=== PATIENT | female | born 1975 ===

== ENCOUNTER 2016-11-18 02:44 | Inpatient (IN) | payer MEDICAID ==
[~2016-11-18] VITALS: Ht 147.3 cm; Wt 79.4 kg
[2016-11-18] MEDS ORDERED: Lactated Ringer's 1,000 ML IV PRN (08:57)
[2016-11-18] MEDS ORDERED: Sodium Chloride LOK Flush 10 mL Syringe IVFLUSH PRN (09:00)
[2016-11-18] MEDS ORDERED: Oxytocin 10 Unit/mL Inj IM PRN (09:00)
[2016-11-18] MEDS ORDERED: Carboprost 250 mCg/mL Inj IM PRN (09:00)
[2016-11-18] MEDS ORDERED: Hemorrhage Kit, Post Partum XX ONE (09:00)
[2016-11-18] MEDS ORDERED: Methylergonovine 0.2 mg/mL Inj IM PRN (09:00)
[2016-11-18] MEDS ORDERED: Oxytocin 30 Units/500 mL LR 30 UNITS in IV Premix 1 EACH IV PRN (09:00)
[2016-11-18 09:04] LABS: Mean Corpuscular Volume 96.4 fL (81-100)
[2016-11-18] MEDS: Lactated Ringer's 1,000 ML IV SCH ×3 (09:32→20:33)
[2016-11-18] MEDS: Oxytocin 30 Units/500 mL LR 30 UNITS in IV Premix 1 EACH IV PRN (09:38)
[2016-11-18] MEDS ORDERED: PREN-148 PO (09:40)
[2016-11-18] MEDS ORDERED: FERR-83 PO (09:41)
--- NOTE | 2016-11-18 10:34 | HP ---
[address] [address] HISTORY AND PHYSICAL PATIENT: BEVERLY MCCALLUM : 1975 MR#: [id number] ADMIT: 11/18/2016 JOB ID: [id number] ADMISSION DIAGNOSIS: Elective induction at 39 weeks for history of prior intrauterine demise x2 at term. HISTORY OF PRESENT ILLNESS: The patient is a 41 years old, 8 para 7-0-0-4 at 39 weeks gestational age by LMP, confirmed by 14 week ultrasound who has her complicated with the followin. History of 2 stillborn in [place] at term in 1996 and 2004. 2. One child at the age of 20 years old of illness in [place] in 1994. 3. Advanced maternal age. 4. Abnormal quad screen with positive for Down syndrome and trisomy 18, negative cell-free DNA testing, but thick nuchal translucency on ultrasound. Amniocentesis done. Interface FISH test showed normal signal pattern for chromosomes 13, 18, 21, and Y chromosome. Abnormal microarray with increased risk for autosomal recessive disorders. 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 5. Echogenic bowel that resolved recently. 6. Enlarged cisterna magna. Last measurement 18 mm on November 05, 2016 with Maternal Medicine Department. 7. Grand multipara. 8. Anemia. 9. History of abnormal Pap smear with biopsy in [place], ASCUS Pap on June 11, 2016 with negative high-risk HPV. 10. speaking. 11. Declined tubal sterilization and opted for intrauterine device for control. 12. Baby had a macrosomia that resolved on the last ultrasound at [facility] on November 05, 2016 with estimated weight of 3236 g, 67th percentile, MARY JANE of 11.5 cm, average gestational age 37 weeks and 3 days. Normal growth. Enlarged cisterna magna 18 mm. The patient denied any leakage of fluid, vaginal bleeding, contractions. Reports movements who is admitted for planned elective induction of labor as recommended by Maternal Medicine consult. Consent signed. All questions answered. PAST OBSTETRICAL HISTORY: In 1990 spontaneous vaginal delivery at term in [place], no complications. In 1992 spontaneous vaginal delivery in [place], no complications. In 1994 spontaneous vaginal delivery at term in [place]. Baby at 1 years old of illness, unclear what time of illness. In 1996 patient delivered a stillborn at term in [place]. In 1997 spontaneous vaginal delivery of a term viable in [place]. In 2002 term delivery in [place] vaginal. In 2004 second intrauterine demise. Baby born a still born at term in [place]. And the current . 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 The history of abnormal Pap with biopsy in [place]. No records available. No STDs. PAST MEDICAL HISTORY: Anemia. PAST SURGICAL HISTORY: Insignificant. SOCIAL HISTORY: Denied any alcohol consumption. Denied any drugs of abuse. Denied any cigarette smoking. ALLERGIES: No known drug allergies. MEDICATIONS: 1. vitamins. 2. Promethazine for early nausea vomiting in , patient stopped it. 3. Iron. LABORATORIES: O-positive, antibody negative, rubella immune, serology nonreactive, hepatitis B surface antigen negative. HIV nonreactive. Gonorrhea and Chlamydia cultures negative. Quad screen positive for Down syndrome and trisomy 18. Cellfree DNA testing was negative. Amniocentesis showed abnormal microarray with increased risk of autosomal recessive disorders consistent with as well. Pap smear ASCUS Pap with negative high-risk HPV on June 11, 2016. Diabetes screen 91 at 25 weeks gestational age. GBS cultures negative on November 03, 2016. PHYSICAL EXAMINATION: Patient is alert, oriented x3. Vital signs are 119/75 for blood pressure. Respirations are 18, pulse is 62, temperature 36.8 degrees centigrade. Heart is regular rate and rhythm. Positive S1, S2. Lungs clear to auscultation bilaterally. Abdomen gravid uterus, nontender. Positive bowel sounds. Lower extremities: No calf tenderness appreciated bilaterally. Cervical exam 2 cm dilated, cervix 50% effaced, -4 station medium consistency, posterior position, Rojo score of 3. Bedside ultrasound confirmed vertex presentation on admission. Cervical ripening balloon was inserted. Normal saline 80 cc injected in the uterine balloon and 80 cc infused in the vaginal balloon. The patient tolerated the cervical ripening balloon insertion well. ASSESSMENT AND PLAN: Patient is a 41-year-old, 8 para 7-0-0-4 at 39 weeks gestational age by last menstrual period, confirmed by 14 week ultrasound. Admitted with complicated with the above thus admitted for an elective induction of labor at term for prior history of intrauterine demise x2 at term as recommended by Maternal Medicine consults. 1. Induction of labor started with cervical ripening balloon. Will consider adding low-dose Pitocin. 2. Reactive heart tracing baseline of 140 beats per minute, positive accelerations, no decelerations, moderate variability. Continue external monitoring and consider internal monitoring as needed. 3. GBS cultures negative. 4. Discussed intrapartum analgesia options with the patient. She is still undecided. 5. Discussed all findings with the Pediatric hospitalist on-call for today. All of the above was discussed in detail with the patient through a hospital provided site interpreter. All questions answered. The patient agreed to the above.
[2016-11-18] MEDS ORDERED: Methylergonovine 0.2 mg/mL Inj ONE (14:00)
[2016-11-18] MEDS ORDERED: fentaNYL-PF 50 mCg/mL 2 mL Inj IVPUSH PRN ×2 (15:30→16:00)
[2016-11-18] MEDS ORDERED: fentaNYL 2 mCg/mL-Bupiv 0.125% 100 ML EPIDURAL SCH (15:30)
[2016-11-18] MEDS ORDERED: Phenylephrine/NS-PF 100 mCg/mL 5 mL Syringe IVPUSH PRN (15:30)
[2016-11-18] MEDS ORDERED: Ondansetron 2 mg/mL 2 mL Inj IVPUSH PRN (15:30)
[2016-11-18] MEDS ORDERED: EPHEDrine Sulfate 50 mg/mL Inj IVPUSH PRN (15:30)
[2016-11-18] MEDS ORDERED: Lactated Ringer's 500 ML IV ONE (15:30)
[2016-11-18] MEDS ORDERED: Lactated Ringer's 1,000 ML IV SCH (15:30)
[2016-11-18] MEDS ORDERED: Atropine 1 mg/10 mL (Code) Syringe IVPUSH PRN (15:30)
[2016-11-18] MEDS ORDERED: fentaNYL-PF 50 mCg/mL 2 mL Inj IVPUSH ONE (15:55)
--- NOTE | 2016-11-18 16:25 | PROG NOTE ---
[address] [address] PROGRESS NOTE PATIENT: BEVERLY MCCALLUM : 1975 MR#: [id number] ADMIT: 11/18/2016 JOB ID: [id number] DATE: 11/18/2016 The patient had a cervical ripening balloon inserted this morning at 8:30 a.m. The balloon fell out. Cervix was 5 cm dilated, 60% effaced, -4, presenting vertex, mid position. Artificial rupture of membranes. Obtained clear fluid. Intrauterine pressure catheter inserted to monitor uterine contractions. The patient was at the 6 milliunits of Pitocin per minute. Vital signs are 131/63 for blood pressure. Respirations are 18, pulse is 71, temperature 36.8 degrees centigrade. heart tracing is showing a baseline of 130 beats per minute, positive accelerations, no decelerations, moderate variability, category 1 heart tracing. ASSESSMENT AND PLAN: 1. A 41-year-old 8, para 7-0-0-4 at 39 weeks gestational age by last menstrual period, confirmed by 18 week ultrasound admitted for elective induction of labor at term for a history of prior IUFD x2 and please see her problem list on admission. Induction of labor started with cervical ripening balloon and low-dose Pitocin with artificial rupture of membranes. Would continue with Pitocin. 2. Discussed intrapartum analgesia. The patient requested IV pain medications. Given one dose of fentanyl IV. 3. GBS cultures negative. 4. Category 1 heart tracing. Will continue external monitoring. Consider internal monitoring on a p.r.n. basis. All the above discussed in detail with the patient through a hospital provided packing and stamping machine operator. The patient agreed to the above.
[2016-11-18] MEDS: Sodium Chloride LOK Flush 10 mL Syringe IVFLUSH SCH (16:30)
[2016-11-18] MEDS: fentaNYL-PF 50 mCg/mL 2 mL Inj IVPUSH PRN (21:27)
[2016-11-19] MEDS: fentaNYL-PF 50 mCg/mL 2 mL Inj IVPUSH PRN (00:05)
[2016-11-19] MEDS ORDERED: Carboprost 250 mCg/mL Inj IM PRN (00:25)
[2016-11-19] MEDS ORDERED: Hemorrhage Kit, Post Partum XX ONE (00:25)
[2016-11-19] MEDS ORDERED: Benzocaine (Dermoplast) 20% 60 Gm Spray TOPICAL PRN (00:25)
[2016-11-19] MEDS ORDERED: Oxytocin 30 Units/500 mL LR 30 UNITS in IV Premix 1 EACH IV PRN (00:25)
[2016-11-19] MEDS ORDERED: Witch Hazel-Glycerin Pads TOPICAL PRN (00:25)
[2016-11-19] MEDS: Lactated Ringer's 1,000 ML IV SCH ×2 (00:25→08:56)
[2016-11-19] MEDS ORDERED: Oxytocin 10 Unit/mL Inj IM PRN (00:25)
[2016-11-19] MEDS ORDERED: LANOlin HPA 7 Gm Ointment TOPICAL PRN (00:25)
[2016-11-19] MEDS ORDERED: oxyCODONE-Acetamin 5-325 mg Tablet PO PRN (00:25)
[2016-11-19] MEDS ORDERED: Methylergonovine 0.2 mg/mL Inj IM PRN (00:25)
[2016-11-19] MEDS: Sodium Chloride LOK Flush 10 mL Syringe IVFLUSH SCH (00:30)
--- NOTE | 2016-11-19 01:24 | OP ---
[address] [address] OPERATIVE REPORT PATIENT: BEVERLY MCCALLUM : 1975 MR#: [id number] ADMIT: 11/18/2016 JOB ID: [id number] DATE OF SURGERY: 11/18/2016 PREOPERATIVE DIAGNOSIS(ES): 1. Intrauterine at 39 weeks gestation. 2. History of prior intrauterine at term x2. 3. Abnormal quad screen. 4. Negative cell free DNA. 5. Amniocentesis test normal for chromosomes 13, 18, 21 and Y chromosome, but with abnormal microarray with increased risk of autosomal recessive disorders. 6. Fetus with enlarged cisterna magna. 7. Grand multiparous. 8. Anemia. 9. Advanced maternal age. POSTOPERATIVE DIAGNOSIS(ES): 1. Intrauterine at 39 weeks gestation, status post normal vaginal delivery. 2. History of prior intrauterine at term x2. 3. Abnormal quad screen. 4. Negative cell free DNA. 5. Amniocentesis test normal for chromosomes 13, 18, 21 and Y chromosome, but with abnormal microarray with increased risk of autosomal recessive disorders. 6. Fetus with enlarged cisterna magna. 7. Grand multiparous. 8. Anemia. 9. Advanced maternal age. ESTIMATED BLOOD LOSS: 350 mL. ANESTHESIA: None. SURGEON: Iwona Nicolas MD SOFTWARE BUSINESS ANALYST: None. FINDINGS: Delivered a male in right occiput anterior position. Weight 3662 g, equivalent to 8 pounds 1 ounce. Apgars 8 at one minute and 9 at five minutes. Three-vessel cord placenta. COMPLICATIONS: None. PROCEDURE IN DETAIL: This is a 41-year-old 8, now para 8-0-0-5 who presented at 39 weeks gestation and zero days, dated by last menstrual period and confirmed by 14-week ultrasound, for induction of labor for history of previous two stillborn deliveries at term in [place] in 1996 and in 2004. This was complicated by advanced maternal age and abnormal quad screen and abnormal amniocentesis, as mentioned above. Induction of labor started at 8:29 a.m. on November 18, 2016. Cervix was 2 cm, 50% effaced, -4. Coles bulb balloon was inserted and low-dose Pitocin was started. The Coles bulb fell out at 1515 and artificial rupture of membrane was performed. Cervix was 5 cm, 60% effaced and -4. We continued to increase Pitocin as per protocol until the patient was found completely dilated at 2306. The patient pushed effectively without epidural to deliver at 2351. She delivered a male in the cephalic presentation in left occiput anterior position, with no nuchal cord. Shoulders delivered without difficulty. was placed on the maternal abdomen. Cord clamping was performed after 1 minute delay. Retail Account Representative was present in the room at the time of delivery. A cord segment was collected for gases. Cord blood was collected for typing. Then, placenta was delivered spontaneously intact with a three-vessel cord. Oxytocin was started and fundal massage was performed. Examination of the perineum revealed no lacerations. Uterine fundus was firm. Misoprostol 600 mcg was placed rectally prophylactically for hemorrhage. All instrument, needle and sponge counts were correct x2. The patient and infant were recovering in the delivery room and in stable condition at the end of the procedure. Iwona Reece MD, was present and performed the entire delivery. ANA
[2016-11-19] MEDS: Oxytocin 30 Units/500 mL LR 30 UNITS in IV Premix 1 EACH IV PRN (01:53)
[2016-11-19] MEDS: Ascorbic Acid 500 mg Tablet PO SCH ×2 (08:17→18:06)
--- NOTE | 2016-11-19 08:59 | NUR ---
received SW referral. 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
--- NOTE | 2016-11-19 13:50 | PROG NOTE ---
[address] [address] PROGRESS NOTE PATIENT: BEVERLY MCCALLUM : 1975 MR#: [id number] ADMIT: 11/18/2016 JOB ID: [id number] DATE: 11/19/2016 SUBJECTIVE: The patient is doing well this morning. with no difficulties. Had a spontaneous vaginal delivery at 2351 last night after successful induction of labor for a history of prior IUFD at term x2. DATE: OBJECTIVE: Vital signs are 111/60 for blood pressure. Respirations are 16. Pulse is 67. Temperature 37.5 degrees centigrade. Heart is regular rate and rhythm. Positive S1, S2. Lungs clear to auscultation bilaterally. Abdomen firm. Uterine fundus palpated at 1 cm below the umbilicus. Nontender. Positive bowel sounds. Perineum: No active bleeding. Lower extremities: No calf tenderness appreciated bilaterally. LABORATORIES: H and H this morning is 11.3 and 32.0. The patient is on iron supplementation with vitamin C. White blood count 5.9, platelets 179. ASSESSMENT AND PLAN: The patient is a 41-year-old 8, para 8-0-0-5 day #1, status post spontaneous vaginal delivery. Afebrile with stable vital signs. Anemia on iron supplementation. Continue with care. Anticipate discharge tomorrow.
--- NOTE | 2016-11-19 16:15 | NUR ---
VICTORIAB RNC agree with charting done by SHON MCCARTHY this day, this pt
[2016-11-20] MEDS: Lactated Ringer's 1,000 ML IV SCH ×4 (00:25→10:37)
[2016-11-20] MEDS: Sodium Chloride LOK Flush 10 mL Syringe IVFLUSH SCH ×2 (00:30→08:30)
[2016-11-20 06:00] LABS: Mean Corpuscular Volume 100.6 fL (81-100)
[2016-11-20] MEDS: Ascorbic Acid 500 mg Tablet PO SCH (08:39)
--- NOTE | 2016-11-20 11:01 | PCM.DIMED ---
Discharge Instructions Date of Service November 20, 2016 Dates of Hospitalization November 18, 2016 at 06:54 Diet Discharge Diet: No restrictions Activity Discharge Activity: No restrictions Call your provider Call your provider for: Fever or Chills, Shortness of breath, Bleeding, Chest pain, Vomitting, Excessive diarrhea Patient Instructions Follow-up with PCP in: 6 weeks Romero Dillon MD November 20, 2016 11:01
[2016-11-20] MEDS ORDERED: DOCU-41 PO (11:03)
[2016-11-20] MEDS ORDERED: IBUP-1827 PO (11:03)
[2016-11-20] MEDS ORDERED: OXYC1TAB24 PO (11:03)
[2016-11-20 11:26] VITALS: BP 112/41; PULSE 71; RESP 16
--- NOTE | 2016-11-20 13:18 | NUR ---
Social work Brief Note D/A: SUPERVISOR RECORDS CHANGE referral received due to MOB previous history of stillborn and infant demise. SUPERVISOR RECORDS CHANGE request to assess family support. SUPERVISOR RECORDS CHANGE met with MOB and FOB at bedside. Baby is named Orlando Carreno. LEONARD has 3 additional living children aged 14, 19 and 24. MOB denies any specific needs, she is enrolled with WIC but not [facility]. FOB is a tobacco farmworker. LEONARD got ample care however she is concerned that they will be moving to [place] on 11/25 and would like to transfer pediatric care to [place]. SUPERVISOR RECORDS CHANGE relayed this to RN. LEONARD has no history of mental illness or drug abuse. No additional needs identified. P: LEONARD appears to have ample family support and was appropriately concerned both during care as well as in arranging follow up care to provide baby with sufficient medical care. No additional needs identified. AWAIS Mayen
--- NOTE | 2016-11-20 14:12 | NUR ---
Discharge Pt. discharged to home at 1315 in stable condition. 19 y/o daughter in the room who speaks excellent Estonian was present to interpret. Reviewed discharge instructions for mother and baby including depression symptoms, pelvic rest, and s/s hemorrhage and pt. has no questions at this time. Discussed methods of control with pt. and spouse. Pt. says she is planning on getting an IUD placed, and the spouse had questions about a vasectomy. Pt. aware of f/u appts needed for baby and herself. Will call Fede today to set up tuesday appointment. All scripts, instructions and belongings with pt.
--- NOTE | 2016-11-20 14:28 | DIS ---
[address] [address] DISCHARGE SUMMARY PATIENT: BEVERLY MCCALLUM : 1975 MR#: [id number] ADMIT: 11/18/2016 JOB ID: [id number] DIS: 11/20/2016 ADMITTING DIAGNOSIS: Intrauterine at 39 weeks. Induction of labor. Advanced maternal age. Grand multiparity. DISCHARGE DIAGNOSIS: Status post spontaneous vaginal delivery at 39 weeks. Grand multiparity. HOSPITAL COURSE: The patient is a 41-year-old, 9, para 5 now, who came to Labor and Delivery at 39 weeks for induction of labor. The was complicated by advanced maternal age, abnormal quad screen, abnormal amniocentesis. The patient had initial exam that showed the cervix to be 2 cm dilated, 50% effaced, -4 station. Cervical ripening balloon was inserted and it was followed by oxytocin. She progressed fairly well and by the end of the day at 23:51, she underwent spontaneous vaginal delivery. Delivered male with weight of 3662 g, Apgars 8 at one minute and 9 at 5 minutes. The patient has not had any lacerations. The additional dose of misoprostol was provided for prophylaxis of hemorrhage. She has not had any excessive blood loss. On day one, November 19, 2016, she was doing well, breast-feeding without any problems, ambulating. The following day, November 20, 2016, 1-06/28, patient was doing well, has not have any complaints about pain. Vitals were stable. She was afebrile. The fundus was firm. Perineum was intact. There was no vaginal bleeding. Labs showed WBC count of 12.2, hemoglobin 10.8, hematocrit 32.0, platelet count 166. The patient was sent home on day 1-06/28, November 20, 2016 with all discharge criteria met. She was prescribed Motrin 600 p.o. t.i.d. p.r.n. for pain, Colace 100 mg p.o. b.i.d. and ferrous sulfate 325 mg p.o. daily. Followup visit in [facility] is scheduled in six weeks.
== END 2016-11-20 13:20 | disposition home or self-care (01) | DRG 775 ==
LOC: FBC 06:54
PROVIDERS: ADMIT Obstetrics & Gynecology; ATTEND Obstetrics & Gynecology
PROC: 10E0XZZ Delivery of Products of Conception, External Approach (ICD-10-PCS; principal; 2016-11-18)
PROC: 0U7C7ZZ Dilation of Cervix, Via Natural or Artificial Opening (ICD-10-PCS; 2016-11-18)
PROC: 10907ZC Drainage of Amniotic Fluid, Therapeutic from Products of Conception, Via Natural or Artificial Opening (ICD-10-PCS; 2016-11-18)
PROC: 3E033VJ Introduction of Other Hormone into Peripheral Vein, Percutaneous Approach (ICD-10-PCS; 2016-11-18)
DX: O26.23 Pregnancy care for patient with recurrent pregnancy loss, third trimester (principal); O09.523 Supervision of elderly multigravida, third trimester; Z3A.39 39 weeks gestation of pregnancy; Z37.0 Single live birth